=== PATIENT | female | born 1975 | race Caucasian/White ===

== ENCOUNTER 2025-01-09 12:44 | Inpatient (IN) | payer MEDICAID ==
[~2025-01-09] VITALS: Ht 152.4 cm; Wt 80.3 kg
[2025-01-09 12:46] VITALS: O2SAT 100
[2025-01-09] MEDS: KETOROLAC 15MG/ML VIAL IV ONE (13:44)
[2025-01-09] MEDS: ONDANSETRON HCL 4MG/2ML INJ IV ONE (13:44)
[2025-01-09] MEDS: ACETAMINOPHEN 500MG TABLET PO ONE (13:44)
[2025-01-09] MEDS: SODIUM CHLORIDE 0.9% 1,000 ML IV ONE (13:44)
[2025-01-09 14:11] LABS: BASOPHILS % 0.7 % (0.0-2.0); EOSINOPHILS % 1.0 % (0.0-5.0); HEMATOCRIT. 35.5 % (36.0-48.0); HEMOGLOBIN. 12.2 g/dL (12.0-16.0); LYMPHOCYTES % 32.9 % (20.0-50.0); MEAN PLATELET VOLUME 10.4 fl (7.4-10.4); MONOCYTES % 8.8 % (2.0-8.0); NEUTROPHILS % 56.6 % (40.0-76.0); PLATELET 148 x1000/uL (130-400); RED BLOOD CELL COUNT 3.59 mill/uL (4.2-5.4); RED CELL DISTRIBUTION WIDTH 15.3 % (11.6-14.6)
[2025-01-09 14:19] LABS: CREATININE 1.2 mg/dL (0.6-1.0)
[2025-01-09 14:20] LABS: UREA NITROGEN BLOOD 27 mg/dL (9-23)
[2025-01-09 14:22] LABS: ASPARTATE AMINOTRANSFERASE 270 IU/L (<34); BILIRUBIN DIRECT 0.5 mg/dL (<=3.0); BILIRUBIN TOTAL 1.1 mg/dL (0.1-1.0); PROTEIN TOTAL 5.1 g/dL (6.0-8.3); TROPONIN I HIGH SENSITIVITY < 4 ng/L (3.0-34)
[2025-01-09 14:54] LABS: HCG SCREEN NEGATIVE
[2025-01-09 19:06] VITALS: BP 103/63; PULSE 81; RESP 18; TEMP 36.7516
[2025-01-09 20:00] VITALS: BP 107/74; PULSE 77; RESP 18; TEMP 36.4; O2SAT 94
[2025-01-09] MEDS: PNEUMOCOCCAL 20-VAL CONJ-DIP CRM 0.5ML IM ONE (20:00)
[2025-01-09] MEDS ORDERED: CLONIDINE 0.1MG TABLET PO PRN (21:00)
[2025-01-09] MEDS ORDERED: DOCUSATE SODIUM 100MG CAPSULE PO PRN (21:00)
[2025-01-09] MEDS ORDERED: ONDANSETRON HCL 4MG/2ML INJ IV PRN (21:00)
[2025-01-09] MEDS ORDERED: ACETAMINOPHEN 325MG TABLET PO PRN (21:00)
[2025-01-09] MEDS ORDERED: IPRATROPIUM/ALBUTEROL 0.5-3(2.5)MG/3ML NEB HHN PRN (21:15)
[2025-01-09] MEDS ORDERED: DEXTROSE 50% WATER 50ML SYRINGE IV PRN (21:15)
[2025-01-09] MEDS ORDERED: SODIUM CHLORIDE 0.45% 1,000 ML IV SCH (21:30)
[2025-01-09] MEDS: ACETAMINOPHEN 325MG TABLET PO PRN (21:37)
[2025-01-09] MEDS: POTASSIUM CHLORIDE 20MEQ TABLET SR PO NR (21:37)
[2025-01-09] MEDS: PANTOPRAZOLE SODIUM 40 MG/VIAL IV SCH (21:37)
[2025-01-09] MEDS: DEXT 5%/0.45% NACL 1000ML 1,000 ML IV SCH (21:38)
[2025-01-09] MEDS ORDERED: PIPERACILLIN/TAZO 3.375G/50ML 50 ML IV SCH (22:00)
[2025-01-09] MEDS: HYDROCODONE/ACETAMINOPHEN 5/325MG TABLET PO PRN (22:46)
[2025-01-09] MEDS ORDERED: METF-1150 MT (23:22)
[2025-01-09] MEDS ORDERED: MONT-46 PO (23:22)
[2025-01-09] MEDS ORDERED: LOSA1TAB37 MT (23:22)
[2025-01-09] MEDS ORDERED: CYM20 MT (23:22)
[2025-01-10] VITALS: BP 95/49; PULSE 85; RESP 19; TEMP 36.6; O2SAT 99
[2025-01-10 01:43] LABS: TROPONIN I HIGH SENSITIVITY < 4 ng/L (3.0-34)
[2025-01-10] MEDS: MELATONIN 3MG TABLET PO NR (03:24)
[2025-01-10 04:00] VITALS: BP 93/55; PULSE 83; RESP 18; TEMP 36.8; O2SAT 97
[2025-01-10] MEDS ORDERED: METRONIDAZOLE 500 MG PREMIX 100 ML IV SCH (04:15)
[2025-01-10] MEDS ORDERED: CEFEPIME 1GM IN DEXT 5% 50ML IV SCH (04:15)
[2025-01-10] MEDS: CEFEPIME 1GM PREMIX 50ML IV SCH (05:13)
[2025-01-10] MEDS: METRONIDAZOLE 500 MG PREMIX 100 ML IV SCH (05:13)
[2025-01-10] MEDS: LACTATED RINGERS 1,000 ML IV ONE (06:02)
[2025-01-10 06:08] LABS: *AMPHETAMINES SCREEN URINE NEGATIVE (NEGATIVE); *BENZODIAZEPINES SCREEN URINE NEGATIVE (NEGATIVE)
[2025-01-10 06:10] LABS: *BARBITURATES SCREEN URINE NEGATIVE (NEGATIVE); *COCAINE SCREEN URINE NEGATIVE (NEGATIVE); CANNABINOID URINE SCREEN PRESUMPTIVE POSITIVE (NEGATIVE); ECSTASY MDMA SCREEN URINE NEGATIVE (NEGATIVE); METHADONE URINE SCREEN NEGATIVE (NEGATIVE); OPIATES URINE SCREEN PRESUMPTIVE POSITIVE (NEGATIVE); PHENCYCLIDINE URINE SCREEN NEGATIVE (NEGATIVE)
[2025-01-10] MEDS: BLOOD SUGAR DIAGNOSTIC STRIP TEST SCH (06:43)
[2025-01-10 08:07] VITALS: BP 90/51; PULSE 82; RESP 19; TEMP 36.2; O2SAT 93
[2025-01-10] MEDS: INSULIN LISPRO 100 UNITS/ML SUBCUT SCH (08:10)
[2025-01-10] MEDS: SODIUM CHLORIDE 0.9% 1,000 ML IV ONE (09:59)
[2025-01-10 11:30] LABS: CREATINE KINASE MB FRACTION 0.8 ng/mL (0.5-3.6)
[2025-01-10 11:31] LABS: TROPONIN I HIGH SENSITIVITY < 4 ng/L (3.0-34)
[2025-01-10 11:33] LABS: CREATININE 1.2 mg/dL (0.6-1.0); TRIGLYCERIDE 407 mg/dL (0-150); UREA NITROGEN BLOOD 26 mg/dL (9-23)
[2025-01-10 11:34] LABS: ASPARTATE AMINOTRANSFERASE 234 IU/L (<34); LDL CHOLESTEROL 78 mg/dL (5-100); T4 FREE 1.16 ng/dL (0.89-1.76)
[2025-01-10 11:35] LABS: BILIRUBIN DIRECT 0.5 mg/dL (<=3.0); BILIRUBIN TOTAL 1.2 mg/dL (0.1-1.0); PHOSPHORUS 3.7 mg/dL (2.5-4.9); PROTEIN TOTAL 5.1 g/dL (6.0-8.3)
[2025-01-10 11:58] VITALS: BP 90/55; PULSE 82; RESP 20; TEMP 36.2; O2SAT 100
[2025-01-10 13:33] LABS: BASOPHILS % 0.6 % (0.0-2.0); EOSINOPHILS % 2.2 % (0.0-5.0); HEMATOCRIT. 31.8 % (36.0-48.0); HEMOGLOBIN. 10.9 g/dL (12.0-16.0); LYMPHOCYTES % 45.9 % (20.0-50.0); MEAN PLATELET VOLUME 10.1 fl (7.4-10.4); MONOCYTES % 9.3 % (2.0-8.0); NEUTROPHILS % 42.0 % (40.0-76.0); PLATELET 115 x1000/uL (130-400); RED BLOOD CELL COUNT 3.19 mill/uL (4.2-5.4); RED CELL DISTRIBUTION WIDTH 15.5 % (11.6-14.6)
[2025-01-10] MEDS: MAGNESIUM 4 G PREMIX 100 ML IV SCH (14:40)
[2025-01-10 16:00] VITALS: BP 102/68; PULSE 55; RESP 18; TEMP 35.9; O2SAT 96
[2025-01-10] MEDS: SODIUM CHLORIDE 0.9% 1,000 ML IV SCH (17:36)
[2025-01-10 19:30] LABS: CREATINE KINASE MB FRACTION 0.6 ng/mL (0.5-3.6); CREATININE 1.0 mg/dL (0.6-1.0); TROPONIN I HIGH SENSITIVITY < 4 ng/L (3.0-34); UREA NITROGEN BLOOD 24 mg/dL (9-23)
[2025-01-10 19:33] LABS: VITAMIN B12 SERUM 1715 pg/mL (211-911)
[2025-01-10 20:00] VITALS: BP 100/67; PULSE 78; RESP 18; TEMP 35.8; O2SAT 100
[2025-01-10 21:08] LABS: INR 1.0
[2025-01-10] MEDS: CEFEPIME 2GM/100ML 100 ML IV SCH (21:55)
[2025-01-11] VITALS: BP 106/66; PULSE 73; RESP 18; TEMP 36; O2SAT 100
[2025-01-11 04:00] VITALS: BP 103/64; PULSE 78; RESP 18; TEMP 36; O2SAT 100
[2025-01-11 06:16] LABS: CREATININE 0.8 mg/dL (0.6-1.0)
[2025-01-11 06:17] LABS: UREA NITROGEN BLOOD 18 mg/dL (9-23)
[2025-01-11] MEDS: POTASSIUM CHLORIDE 20MEQ TABLET SR PO NR (07:04)
[2025-01-11] MEDS: KCL 20MEQ/100ML PREMIX 100 ML IV NR (07:17)
[2025-01-11 07:18] LABS: BASOPHILS % 1.0 % (0.0-2.0); EOSINOPHILS % 2.6 % (0.0-5.0); HEMATOCRIT. 30.2 % (36.0-48.0); HEMOGLOBIN. 10.5 g/dL (12.0-16.0); LYMPHOCYTES % 44.1 % (20.0-50.0); MEAN PLATELET VOLUME 10.6 fl (7.4-10.4); MONOCYTES % 8.9 % (2.0-8.0); NEUTROPHILS % 43.4 % (40.0-76.0); PLATELET 105 x1000/uL (130-400); RED BLOOD CELL COUNT 3.04 mill/uL (4.2-5.4); RED CELL DISTRIBUTION WIDTH 15.5 % (11.6-14.6)
[2025-01-11 08:00] VITALS: BP 101/66; PULSE 75; RESP 19; TEMP 36.2; O2SAT 98
[2025-01-11] MEDS: DULOXETINE HCL 60MG DR CAPSULE PO SCH (08:07)
[2025-01-11] MEDS ORDERED: CIPR-452 MT (10:17)
[2025-01-11] MEDS ORDERED: METR-167 MT (10:17)
[2025-01-11 11:48] VITALS: BP 103/62; PULSE 75; RESP 18; TEMP 97.6
[2025-01-11 12:00] VITALS: BP 103/64; PULSE 76; RESP 18; O2SAT 99
[2025-01-11] MEDS: CEFEPIME 2GM/100ML 100 ML IV SCH (13:54)
[2025-01-11 16:00] VITALS: BP 100/58; PULSE 74; RESP 18; TEMP 36.3; O2SAT 98
[2025-01-12] MEDS ORDERED: METRONIDAZOLE 500MG TABLET PO SCH (06:00)
[2025-01-12 09:07] LABS: FOLATE HEMATOCRIT 35.1 % (34.0-46.6)
== END 2025-01-11 17:25 | disposition home or self-care (01) | DRG 244 ==
LOC: ER 12:44 → 7WST 15:45 → ENRESERV 16:40
PROVIDERS: ADMIT Internal Medicine; ATTEND Internal Medicine
DX: K57.32 Diverticulitis of large intestine without perforation or abscess without bleeding (principal); N17.9 Acute kidney failure, unspecified; E87.20 Acidosis, unspecified; I20.0 Unstable angina; I95.9 Hypotension, unspecified; K70.10 Alcoholic hepatitis without ascites; E88.09 Other disorders of plasma-protein metabolism, not elsewhere classified; K76.0 Fatty (change of) liver, not elsewhere classified; D53.9 Nutritional anemia, unspecified; E11.9 Type 2 diabetes mellitus without complications; F10.10 Alcohol abuse, uncomplicated; I10 Essential (primary) hypertension; J45.909 Unspecified asthma, uncomplicated; F12.90 Cannabis use, unspecified, uncomplicated; R79.89 Other specified abnormal findings of blood chemistry; Z82.49 Family history of ischemic heart disease and other diseases of the circulatory system; Z88.0 Allergy status to penicillin; Z79.84 Long term (current) use of oral hypoglycemic drugs; Z90.710 Acquired absence of both cervix and uterus
CPT/HCPCS: 36415; 71045; 74176; 76700; 80048; 80061; 80076; 80305; 82306; 82550; 82553; 82607; 82728; 82747; 82962; 83036; 83540; 83550; 83605; 83735; 84100; 84145; 84439; 84443; 84484; 84703; 85014; 85025; 93005; 93970; 99285; J0692; J1815; J1885; J2405; J2470; J3475; J3480; J3490; J7030